=== PATIENT | male | born 1985 | race Caucasian/White ===

== ENCOUNTER 2016-10-24 10:26 | Emergency (ER) | payer OTHER ==
[~2016-10-24] VITALS: Ht 180.3 cm; Wt 73.5 kg
[2016-10-24 10:47] VITALS: BP 125/75
--- NOTE | 2016-10-24 11:20 | PHYS DOC ---
General Chief Complaint: SORE THROAT Stated Complaint: SORE THROAT; FEVER Time Seen by MD: 10:47 Source: patient Exam Limitations: no limitations Problems: History of Present Illness Initial Comments Pt is 31/M to ED c/o cough, sore throat. Pt states for past several days he's had dry cough, chest congestion, sore throat, and fevers. No measured temps, pt eating/drinking with discomfort no cp /sob/n/v/d. No prearrival treatment, pt normally healthy follows on Post. Timing/Duration: last week Severity: moderate Location: throat, other Prearrival Treatment: no prearrival treatment Modifying Factors: worse with coughing, improves with rest Associated Symptoms: cough, fever, malaise, nasal congestion/drainage, sore throat Allergies: Coded Allergies: No Known Drug Allergies (Unverified , 10/24/16) Past Medical History Medical History: no pertinent history Surgical History: noncontributory (hernia) Social History Smoker: non-smoker Alcohol: occasionally Drugs: none Constitutional: see HPI Ears: denies dizziness, denies pain, denies tinnitus Nose: congestiondenies epistaxis Throat: see HPIdenies neck stiffness Respiratory: coughdenies shortness of breath Cardiovascular: denies chest pain, denies palpitations Gastrointestinal: denies diarrhea, denies nausea, denies vomiting Physical Exam General Appearance: WD/WN, no apparent distress Eyes: bilateral eye EOMI, bilateral eye PERRL, bilateral eye normal inspection Nose: normal inspection Mouth/Throat: other (pharynx red w/vesicles no exudate airway clear, MMM) Neck: supple, trachea midline, lymphadenopathy (R), lymphadenopathy (L) Cardiovascular/Respiratory: normal breath sounds, no respiratory distress 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 Aggressive hydration with gatorade, water. OTC tylenol, ibuprofen, diphenhydramine, and/or analgesic throat sprays as needed. Rx: cephalexin, tessalon perles Follow up with your doctor in 5-7 days if not better. Return to ED with new or changing symptoms. LATA CURIEL DO Oct 24, 2016 11:20
[2016-10-24] MEDS ORDERED: BENZ100C PO (11:44)
[2016-10-24] MEDS ORDERED: CEPH500C PO (11:44)
== END 2016-10-24 11:47 | disposition home or self-care (01) ==
LOC: ER 10:26
DX: J06.9 Acute upper respiratory infection, unspecified (principal)
CPT/HCPCS: 87070; 87880; 99283